=== PATIENT | female | born 1935 | race Caucasian/White ===

== ENCOUNTER → 2018-12-06 | Outpatient (CLI) | payer OTHER ==
[~2018-12-06] MED LIST: ALEN10; ASCO500; ASPI81CH; BRAIN MIGHT-DH1 EACH; CHOL10002; CONEST.625; CRUTCH4 USE; CYAN500; HYDACE5 PO; MAGOXI400; MELA3; METO10; MIRALAX17 GM; NAPR220; OMEP10ER PO; Prednisone20 MG PO; SERT25 PO; SERT50
== END | disposition home or self-care (01) ==
LOC: LAB EV 10:24 → LAB SHORT 10:24
DX: N39.0 Urinary tract infection, site not specified (principal)
CPT/HCPCS: 87077; 87086; 87186

== ENCOUNTER 2018-12-20 03:05 | Emergency (ER) | payer OTHER ==
[~2018-12-20] VITALS: Ht 165.1 cm; Wt 59.9 kg
[~2018-12-20 03:05] MED LIST changes: -Prednisone20 MG PO
[2018-12-20] MEDS ORDERED: Prednisone20 MG PO (03:27)
== END 2018-12-20 03:38 | disposition home or self-care (01) ==
LOC: ER 03:05
DX: L50.9 Urticaria, unspecified (principal); Z88.8 Allergy status to other drugs, medicaments and biological substances; Z88.2 Allergy status to sulfonamides; Z79.899 Other long term (current) drug therapy; Z79.82 Long term (current) use of aspirin
CPT/HCPCS: 99283; Q0163

== ENCOUNTER → 2019-04-04 | Outpatient (CLI) | payer OTHER ==
[~2019-04-04] MED LIST changes: +Prednisone20 MG PO
[2019-04-04 15:04] LABS: Adenovirus Not Detected (NOT DETECT); Bordetella pertussis Not Detected (NOT DETECT); Chlamydophila pneumoniae Not Detected (NOT DETECT); Coronavirus 229E Not Detected (NOT DETECT); Coronavirus HKU1 Not Detected (NOT DETECT); Coronavirus NL63 Not Detected (NOT DETECT); Coronavirus OC43 Not Detected (NOT DETECT); Human Metapneumovirus Detected (NOT DETECT); Human Rhinovirus/Enterovirus Not Detected (NOT DETECT); Influenza A Not Detected (NOT DETECT); Influenza A/2009-H1 Not Detected (NOT DETECT); Influenza A/H1 Not Detected (NOT DETECT); Influenza A/H3 Not Detected (NOT DETECT); Influenza B Not Detected (NOT DETECT); Parainfluenza Virus 1 Not Detected (NOT DETECT); Parainfluenza Virus 2 Not Detected (NOT DETECT); Parainfluenza Virus 3 Not Detected (NOT DETECT); Parainfluenza Virus 4 Not Detected (NOT DETECT); Respiratory Syncytial Virus Not Detected (NOT DETECT)
[2019-04-04 15:05] LABS: Mycoplasma pneumoniae Not Detected (NOT DETECT)
== END | disposition home or self-care (01) ==
LOC: LAB SHORT 13:17 → LAB 13:17
DX: J20.9 Acute bronchitis, unspecified (principal)
CPT/HCPCS: 87486; 87581; 87633; 87798

== ENCOUNTER 2019-06-12 13:57 | Inpatient (IN) | payer OTHER ==
[~2019-06-12] VITALS: Ht 165.1 cm; Wt 58.4 kg
[~2019-06-12 13:57] MED LIST changes: -ASPI81CH; -CONEST.625; -SERT25 PO
[2019-06-12 15:52] LABS: BASOPHILS ABSOLUTE AUTO 0.03 K/mm3 (0.00-0.23); BASOPHILS PERCENT AUTO 1 % (0-2); EOSINOPHILS ABSOLUTE AUTO 0.03 K/mm3 (0.00-0.68); EOSINOPHILS PERCENT AUTO 1 % (0-6); Hematocrit 39.8 % (33.0-51.0); Hemoglobin 12.2 g/dL (11.5-16.0); IMMATURE GRAN ABSOLUTE AUTO 0.02 K/mm3 (0.00-0.10); IMMATURE GRAN PERCENT AUTO 0 % (0-1); LYMPHOCYTES ABSOLUTE AUTO 1.57 K/mm3 (0.84-5.20); LYMPHOCYTES PERCENT AUTO 30 % (21-46); MONOCYTES ABSOLUTE AUTO 0.49 K/mm3 (0.16-1.47); MONOCYTES PERCENT AUTO 9 % (4-13); Mean Corpuscular HGB 27.5 pg (26.0-34.0); Mean Corpuscular HGB Conc 30.7 g/dL (31.5-36.5); Mean Corpuscular Volume 90 fL (80-100); Mean Platelet Volume 9.4 fL (9.1-12.4); NEUTROPHILS ABSOLUTE AUTO 3.12 K/mm3 (1.96-9.15); NEUTROPHILS PERCENT AUTO 59 % (41-73); Platelet Count 151 K/mm3 (150-400); RDW Coefficient Variation 14.5 % (11.7-14.2); RDW Standard Deviation 47.5 fL (35.1-46.3); Red Blood Cell Count 4.44 M/mm3 (3.80-5.20); White Blood Cell Count 5.26 K/mm3 (4.00-11.30)
[2019-06-12 16:47] LABS: Albumin, Blood 3.4 g/dL (3.4-5.0); Bilirubin, Total 0.2 mg/dL (0.1-1.0); Bun/Creatinine Ratio 25.1 (12.0-20.0); Creatinine, Blood 0.96 mg/dL (0.40-1.00); Globulin, Blood 3.3 g/dL (2.2-4.0); Potassium, Blood 3.9 mmol/L (3.5-5.5); Total Protein, Blood 6.7 g/dL (6.4-8.2)
--- NOTE | 2019-06-12 18:29 | NUR ---
ADMISSION: REPORT RECIEVED FROM ED RN, ROBERT. PT TO UNIT AT 1700. UPON ASSESSMENT PT IS IN NO VISABLE DISTRESS, A/O, VSS. PT VERY PAINFUL AFTER TRANSFERING TO BED AND REQUESTED PAIN MED. 0.5 MG DILAUDID GIVEN. PT HX AND ADMISSION CHARTING COMPLETED. PT DAUGHTER AND FRIEND IN ROOM. NO ACUTE SAFETY CONCERNS AT THIS TIME, WILL CTM.
--- NOTE | 2019-06-12 19:49 | NUR ---
DR. GERONIMO MADE AWARE OF PT CONSULT PER MAX ROMERO RN
--- NOTE | 2019-06-13 03:53 | NUR ---
PT RECEIVED DILAUDID FOR C/O R SHOULDER PAIN. REPORTS INEFFECTIVE AT THIS TIME.THIS RN CONSIDERING ASKING FOR ONE TIME DOSE OF TORADOL IV. REVIEWED PTS LABS WITH CREATININE NOTED WNL. GFR NOTED SLIGHTLY BELOW NORMAL AT 59. I SPOKE WITH PT REGARDING THIS AND PT WANTED ME TO SPEAK WITH DAUGHTER. I SPOKE WITH DAUGHTER VIA TELEPHONE AND DAUGHTER OK WITH ASKING FOR 15 MG DOSE.I LEFT MESSAGE FOR HOSPITALIST TO RETURN MY CALL.WHICH HE RETURNED.NOTIFIED OF R SHOULDER PAIN.AND REQUEST FOR TORADOL. ORDERS RECEIVED.
--- NOTE | 2019-06-13 06:40 | NUR ---
SUMMARY PT OUT TO RADIOLOGY VIA CART AT THIS TIME.
--- NOTE | 2019-06-13 07:25 | NUR ---
RETURNED FROM RADIOLOGY WITH C/O NAUSEA. MEDICATED WITH ZOFRAN.
[2019-06-13 16:08] LABS: Source, Urine Catheter
[2019-06-13 16:10] LABS: Bilirubin, Urine Neg (Neg); Blood, Urine 2+ (Neg); Glucose Qualitative, Urine Neg (Neg); Ketones, Urine Neg (Neg); Leukocyte Esterase, Urine 3+ (Neg); Nitrite, Urine Neg (Neg)
[2019-06-13 16:23] LABS: Protein, Urine Neg (Neg); Urobilinogen, Urine NORM (Normal)
[2019-06-13 16:26] LABS: Appearance, Urine Hazy (Clear); Color, Urine Yellow (P-Yellow)
[2019-06-13 16:27] LABS: Bacteria Mod /hpf; Mucus Mod (0-Heavy); Squamous Epithelial Cells Not Seen /hpf (Few); White Blood Cells, Urine 25-50 /hpf (0-5)
--- NOTE | 2019-06-14 03:52 | NUR ---
ASSUMED CARE OF PT. PT SLEEPING IN BED, RESP E/U, NO DISTRESS NOTED. CALL LIGHT IN REACH. WILL CONT TO MONITOR.
--- NOTE | 2019-06-14 04:00 | NUR ---
NO CHANGES SINCE START OF SHIFT. SAFETY MEASURES IN PLACE. HAND OFF GIVEN TO Juliane FITCH RN USING SBAR.
--- NOTE | 2019-06-14 06:39 | NUR ---
PT HAD NO CHANGES SINCE ASSUMING CARE. PT MED FOR PAIN X1 W/.05MG IV DILAUDID. PT DROWSY AND FORGETFUL, HAS DIFFICULTY FINDING WORDS AT TIMES. PT NPO POST MIDNIGHT FOR PLAN FOR OR TODAY. IVF CONT PER ORDERS. CALL LIGHT IN REACH, BED ALARM ON. WILL CONT TO MONITOR UNTIL REP GIVEN TO ONCOMING RN.
--- NOTE | 2019-06-14 11:39 | NUR ---
PT LEFT ROOM TO GO TO [facility]YS[facility]G/OR
--- NOTE | 2019-06-14 11:39 | NUR ---
INTO SDS VIA BED. PT SLEEPY, BUT AWAKENS TO VOICE AND ANSWERS QUESTION APPROPRIATELY. PT REPORTS 4/10 LOW BACK, RIGHT SHOULDER, AND RIGH HIP PAIN. History, Chart, Medications and Allergies reviewed before start of procedure. LUNGS SLIGHTLY DIMINISHED THROUGH OUT. PT BREATHING QUITE SHALLOW. SATS TO 88% ON RA-INCREASE TO 94% WHEN PT REMINDED TO DEEP BREATHE. NPO STATUS CONFIRMED.
--- NOTE | 2019-06-14 15:35 | NUR ---
THIS RN BEEN GIVEN REPORT AND IS ASSUMING CARE OF PT AT THIS TIME. PT CONT TO BE OUT OF ROOM FOR PROCEDURE.
--- NOTE | 2019-06-14 18:16 | NUR ---
PT RECENTLY BACK FROM HAVING PROCEDURE. PT SLEEPY. LS CLEAR DIMINISHED. PT DENIES PAIN, NAUSEA. PT ABLE TO WIGGLE TOES. AQUACELL DRESSING TO R HIP C/D/I. TEDS AND PAS IN PLACE. ALARM ON. FAMILY PRESENT.
--- NOTE | 2019-06-15 02:00 | NUR ---
ASSUMED CARE OF PT. PT LYING IN BED, CALL LIGHT IN REACH, PT DENIES NEEDS AT THIS TIME. WILL CONT TO MONITOR.
--- NOTE | 2019-06-15 02:53 | NUR ---
PT HAND-OFF REPORT TO ALONZO, RN. PT POD#1 R ELOY-HIP REPLACEMENT. DRESSING TO HIP CDI; PAIN MANAGED PER EMAR. PT C/O PAIN IN R SHOULDER, ICE TO SHOULDER AND HIP PT TOLERATED. BED ALARM AND SIDE RAILS X3 FOR SAFETY. 2L O2 VIA NC; CONT. OXIMITRY IN PLACE; PT DENIES SOB. PT SAT UPRIGHT IN BED FOR PILLS/SIPS. SCD'S AND ANANYA'S TO BLE'S.
[2019-06-15 04:25] LABS: BASOPHILS ABSOLUTE AUTO 0.01 K/mm3 (0.00-0.23); BASOPHILS PERCENT AUTO 0 % (0-2); EOSINOPHILS PERCENT AUTO 0 % (0-6); Hematocrit 31.3 % (33.0-51.0); Hemoglobin 9.8 g/dL (11.5-16.0); IMMATURE GRAN ABSOLUTE AUTO 0.03 K/mm3 (0.00-0.10); IMMATURE GRAN PERCENT AUTO 0 % (0-1); LYMPHOCYTES ABSOLUTE AUTO 0.53 K/mm3 (0.84-5.20); LYMPHOCYTES PERCENT AUTO 6 % (21-46); MONOCYTES ABSOLUTE AUTO 0.69 K/mm3 (0.16-1.47); MONOCYTES PERCENT AUTO 8 % (4-13); Mean Corpuscular HGB 27.7 pg (26.0-34.0); Mean Corpuscular HGB Conc 31.3 g/dL (31.5-36.5); Mean Corpuscular Volume 88 fL (80-100); Mean Platelet Volume 10.2 fL (9.1-12.4); NEUTROPHILS ABSOLUTE AUTO 7.92 K/mm3 (1.96-9.15); NEUTROPHILS PERCENT AUTO 86 % (41-73); Platelet Count 111 K/mm3 (150-400); RDW Coefficient Variation 14.4 % (11.7-14.2); RDW Standard Deviation 46.1 fL (35.1-46.3); Red Blood Cell Count 3.54 M/mm3 (3.80-5.20); White Blood Cell Count 9.18 K/mm3 (4.00-11.30)
[2019-06-15 04:44] LABS: Alanine Aminotransfer (ALT/SGP 21 U/L (12-78); Albumin, Blood 2.1 g/dL (3.4-5.0); Albumin/Globulin Ratio 0.7 (0.8-1.8); Alk Phos 56 U/L (50-136); Anion Gap 5 mmol/L (6-16); Aspartate Aminotrans (AST/SGOT 31 U/L (12-37); Bilirubin, Total 0.3 mg/dL (0.1-1.0); Blood Urea Nitrogen 13 mg/dL (8-24); Bun/Creatinine Ratio 16.6 (12.0-20.0); CO2, Blood 27 mmol/L (21-32); Calcium, Blood 7.8 mg/dL (8.5-10.1); Chloride, Blood 108 mmol/L (98-108); Creatinine, Blood 0.79 mg/dL (0.40-1.00); Globulin, Blood 2.9 g/dL (2.2-4.0); Glomerular Filtration Rate >60 (60-); Glucose, Blood 126 mg/dL (70-99); Magnesium, Blood 1.8 mg/dL (1.6-2.4); Potassium, Blood 3.9 mmol/L (3.5-5.5); Sodium, Blood 140 mmol/L (136-145)
--- NOTE | 2019-06-15 05:44 | NUR ---
BP: PT BP HYPO T/O NIGHT, TRENDING DOWN 87/35 THIS AM. HR STABLE 60'S. PT REP MILD DIZZINESS. CALL PLACED TO MD, PT VITALS, LABS AND I/O REV W/MD. NEW ORDER FOR 500CC NS BOLUS REC.
--- NOTE | 2019-06-15 07:24 | NUR ---
POD 1 S/P R ELOY HIP REPAIR. PT BP TRENDED HYPO T/O NIGHT, UPDATED THIS AM, IV BOLUS GIVEN PER ORDERS. OTHER VSS, 2LNC IN PLACE. PT ALERT, TYLENOL AND 0.5MG DILAUDID GIVEN X1, PT DECLINING ADDITIONAL OFFERS FOR PAIN MEDS, REQ FREQUENT REPOSITIONING FOR COMFORT. DRESSING INTACT, CAP REFILL WNL. PT USING CALL LIGHT FOR ASSISTANCE, WILL CONT TO MONITOR UNTIL REP GIVEN TO ONCOMING RN.
--- NOTE | 2019-06-15 08:00 | NUR ---
DR JASSO HERE RECENTLY. DISCUSSED PT'S STATUS INCLUDING BOLUS GIVEN, RECENT VS, LABS. DISCUSSED PT/OT ORDERS. SEE ORDERS. PT FAMILY CALLED WHILE DR IN ROOM. DR JASSO TALKED WITH FAMILY ON PHONE.
--- NOTE | 2019-06-15 09:54 | NUR ---
DR PARKER HERE TO SEE PT, DISCUSSED PT'S STATUS. OT HERE TO SEE PT.
--- NOTE | 2019-06-15 11:49 | NUR ---
PT MED PER PT/FAMILY REQ THEY REPORT WANTING TO TRY A HALF PILL TO START.
--- NOTE | 2019-06-15 16:58 | NUR ---
PT FAMILY REQ PT TO HAVE TORDOL IS IN SOME PAIN STILL AFTER HAVING ONE PAIN PILL, ALSO REQ MIRALAX. DR NOTIFIED SEE ORDERS. FAMILY NOTIFIED OF ORDERS.
--- NOTE | 2019-06-15 19:21 | NUR ---
SHIFT SUMMARY PT BEEN EATING AND DRINKING WITH ENC WITH ASP PRECAUTIONS IN PLACE. PT BEEN ASSISTED WITH ADL'S PRN, REPOSITIONED PRN. PT BEEN UP TO CHAIR, WORKED WITH THERAPY. PT HAS TEDS, PAS, ICE PACK IN PLACE. FAMILY BEEN IN ROOM MOST OF DAY, LEFT THIS EVENING. PT BED ALARM IN PLACE SHE IS CONFUSED AT TIMES. REPORT BEEN GIVEN TO HS RN.
--- NOTE | 2019-06-15 21:06 | NUR ---
ORTHO RO ASSUME CARE (NOC SHIFT) PATIENT ALERT AND ORIENTED TO HERSELF. PATIENT CONFUSED TO TIME/DATE AND LOCATION AT TIMES - REORIENTS EASILY. PATIENT REPORTS MILD PAIN TO MODERATE WITH REPOSITIONING. R HIP PRESSING IN PLACE C/D/I WITH ICE BACK IN PLACE. PATIENT MEDICATED FOR PAIN PER EMAR. NO SWELLING; NUMBNESS OR TINGLING NOTED. PATIENT HAS CHONIC 'CORN/CALUSES' IN BOTH FEET THAT SHE REPORTS BOTHER HER OFTEN AND THAT SHE GRINDS DOWN WITH FILE. PATIENT HAS FAMILY AT BEDSIDE AT PRESENT AND DENIES ANY NEEDS. L/S CLEAR - PATIENT ON ROOM AIR. PATIENT DENIES ANY CHEST PAIN OR PRESSURE. WILL CONTINUE TO MONITOR.
[2019-06-16 05:18] LABS: BASOPHILS ABSOLUTE AUTO 0.01 K/mm3 (0.00-0.23); BASOPHILS PERCENT AUTO 0 % (0-2); EOSINOPHILS ABSOLUTE AUTO 0.12 K/mm3 (0.00-0.68); EOSINOPHILS PERCENT AUTO 2 % (0-6); Hematocrit 29.5 % (33.0-51.0); Hemoglobin 9.2 g/dL (11.5-16.0); IMMATURE GRAN ABSOLUTE AUTO 0.03 K/mm3 (0.00-0.10); IMMATURE GRAN PERCENT AUTO 0 % (0-1); LYMPHOCYTES ABSOLUTE AUTO 1.48 K/mm3 (0.84-5.20); LYMPHOCYTES PERCENT AUTO 20 % (21-46); MONOCYTES ABSOLUTE AUTO 0.61 K/mm3 (0.16-1.47); MONOCYTES PERCENT AUTO 8 % (4-13); Mean Corpuscular HGB Conc 31.2 g/dL (31.5-36.5); Mean Corpuscular Volume 90 fL (80-100); Mean Platelet Volume 9.9 fL (9.1-12.4); NEUTROPHILS ABSOLUTE AUTO 5.16 K/mm3 (1.96-9.15); NEUTROPHILS PERCENT AUTO 70 % (41-73); Platelet Count 126 K/mm3 (150-400); RDW Coefficient Variation 14.6 % (11.7-14.2); RDW Standard Deviation 47.6 fL (35.1-46.3); Red Blood Cell Count 3.28 M/mm3 (3.80-5.20); White Blood Cell Count 7.41 K/mm3 (4.00-11.30)
--- NOTE | 2019-06-16 05:31 | NUR ---
ORTHO SHIFT SUMMARY PATIENT ALERT TO SELF; PATIENT CONFUSED TO LOCATION, SITUATION AND TIME/DATE T/O SHIFT - REORIENTED PRN. PATIENT PULLING AT LINES, CALLEJAS CATH AND CONTINUOUS BIOX. REMOVED CALLEJAS CATH DUE TO PATIENT PULLING AT IT - DOCUMENTED. PATIENT VOID POST CALLEJAS CATH REMOVAL. PATIENT UP TO BATHROOM WITH WALKER AND GAIT BELT THIS SHIFT - TOLERATED WELL. PATIENT PLACED ON 2 LPM NC WHILE SLEEPING DUE TO DESATURATION TO 86% ON ROOM AIR. 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 WILL CONTINUE TO MONITOR, PATIENT RESTFUL AT THIS TME AND DENIES NEED FOR PAIN MEDICATION. RIGHT HIP HAS AQUACELL DRESSING IN PLACE - POST OP DAY 1 TODAY - MILD AMOUNT OF DARK RED DRAINAGE NOTED UNDER AQUACELL. PATIENT HAS BEEN EDUCATED ON HIP PRECAUTIONS AND REMAIN NONCOMPLIANT WITH KEEPING ROLL BETWEEN HER KNEES AND TURNING TO HER SIDE - EDUCATED PRN. WILL CONTINUE TO MONITOR AND REPORT TO DAYSHIFT RN.
[2019-06-16 05:46] LABS: Anion Gap 4 mmol/L (6-16); Blood Urea Nitrogen 17 mg/dL (8-24); Bun/Creatinine Ratio 20.3 (12.0-20.0); CO2, Blood 27 mmol/L (21-32); Calcium, Blood 7.4 mg/dL (8.5-10.1); Chloride, Blood 113 mmol/L (98-108); Creatinine, Blood 0.84 mg/dL (0.40-1.00); Glomerular Filtration Rate >60 (60-); Glucose, Blood 90 mg/dL (70-99); Potassium, Blood 3.4 mmol/L (3.5-5.5); Sodium, Blood 144 mmol/L (136-145)
--- NOTE | 2019-06-16 09:51 | NUR ---
0922 PAIN PATIENT SLIGHTLY TEARFUL, REPORTS PAIN TO RIGHT HIP 7-8. CHECKED ON PATIENTS PAIN MED DOSE AND WHEN RETURNED TO ROOM PATIENT SLEEPING WITH TELEPHONE IN HAND- NOT MEDICATED AT THIS TIME. SPOKE WITH PATIENTS DAUGHTER NIMA REGARDING HOW PATIENT DID DURING THE NIGHT
--- NOTE | 2019-06-16 10:32 | NUR ---
7129 NOTIFIED BY OCCUPATIONAL THERAPIST, REILLY, THAT PATIENTS HR INCREASED TO 148 WITH ACTIVITY. HR CURRENTLY 114. SPOKE WITH DR OLVERA REGARDING HR AND ORDERS RECEIVED. PHONE CALL MADE TO PATIENTS DAUGHTER NIMA TO UPDATE HER ON PATIENT STATUS.
--- NOTE | 2019-06-16 14:47 | NUR ---
patients daughter, marzena here and would like her mother to transfer to snf today. marzena request to speak with Dr Segovia. contacted Dr Segovia who willspeak with Marzena
--- NOTE | 2019-06-16 15:07 | NUR ---
spoke with dr Juliette garcia. patients heartrate after working with PT. plan paolo be to re evaluate patient tomorrow regarding snf discharge. Spoke with Jennifer Markham RN and will transfer patient to [facility] if patient deemed medically stable
--- NOTE | 2019-06-16 17:26 | NUR ---
SUMMARY PATIENT SLEEPS AFTER MEDICATED FOR PAIN, AWAKENS TO VERBAL STIMULI. [facility] SOFT DIET ORDERED PER DAUGHTERS REQUEST SHE TELLS ME PATIENT WAS COUGHING WITH REGULAR DIET AT LUNCH. PATIENT CALM AND COOPERATIVE THROUGHOUT SHIFT. DRESSING CLEAN, DRY AND INTACT TO RIGHT HIP.
--- NOTE | 2019-06-17 04:51 | NUR ---
PT WITH TACHYCARDIA NOTED DURING DAY WHICH REPORTED TO BE CAUSE OF PT NOT TRANSFERRING TO REHAB DURING DAY.PER DAY RN DAUGHTER STATING PT WITH HX TACHYCARDIA AND WANTING TRANSFER NOT TO BE FURTHER DELAYED.SEE VS FLOW FOR MY DOCUMENTAION OF HEART RATE. PT DENIES CP OR SOB.PT WITH C/O GROIN PAIN BILAT TONIGHT AND R HIP PAIN WITH AMBULATION FOR BRP WHEN PRIOR IN BED DENIED PAIN. I MEDICATED PT WITH PO PAIN MED.BUT,DUE TO BILAT GROIN PAIN AND MILD FEELING OF URGE TO VOID SHORTLY AFTER BRP,I DID BLADDER SCAN ON PT TO VERIFY SHE HAD BEEN EMPTYING BLADDER. BLADDER SCANNED FOR 430 ML.PT REPORTED SHE HAD NOT REALIZED SHE WAS PULLING ON HER CATH, AND ACCIDENTALLY PULLED CATH OUT NIGHT BEFORE.I IN/OUT CATHED PT FOR RETURN OF 600 ML.WITH CATH,SWELLING WAS NOTED. FULLY EMPTIED BLADDER, WITH PT REPORTING PAIN L GROIN IMMEDIATELY RESOLVED AND R HIP/GROIN SIGNIFICANTLY IMPROVED WELL.URINE CLR YELLOW IN APPEARANCE. SPECIPAN PLACED IN BATHROOM FOR FURTHER MEASUREMENTOF I/O WITH ASSISTED BRP. SQL MANAGER OBTAINED 1 X ORDER FOR TORADOL 15 MG IV WHICH WAS GIVEN AND PT RESTING AFTER. SEE VS FLOW.PT REPORTS R SHOULDER PAIN WHICH WAS BASELINE. WARM BLANKET GIVEN TO R SHOULDER AND ICE R HIP.
[2019-06-17 04:53] LABS: Hematocrit 28.7 % (33.0-51.0); Mean Corpuscular HGB 28.4 pg (26.0-34.0); Mean Corpuscular HGB Conc 31.4 g/dL (31.5-36.5); Mean Corpuscular Volume 91 fL (80-100); Mean Platelet Volume 9.9 fL (9.1-12.4); Platelet Count 139 K/mm3 (150-400); RDW Coefficient Variation 14.9 % (11.7-14.2); RDW Standard Deviation 49.5 fL (35.1-46.3); Red Blood Cell Count 3.17 M/mm3 (3.80-5.20); White Blood Cell Count 5.75 K/mm3 (4.00-11.30)
[2019-06-17 05:09] LABS: Anion Gap 4 mmol/L (6-16); Blood Urea Nitrogen 12 mg/dL (8-24); Bun/Creatinine Ratio 15.4 (12.0-20.0); CO2, Blood 28 mmol/L (21-32); Chloride, Blood 111 mmol/L (98-108); Creatinine, Blood 0.78 mg/dL (0.40-1.00); Glomerular Filtration Rate >60 (60-); Glucose, Blood 99 mg/dL (70-99); Sodium, Blood 143 mmol/L (136-145)
--- NOTE | 2019-06-17 09:50 | NUR ---
spoke with dr Segovia and patient is ready to cc to snf today. spoke with [facility] admissions coordinatoe and verified bed is available today. will fax discharge orders when received and arrange transport
--- NOTE | 2019-06-17 14:16 | NUR ---
discharged via [facility] transport to [facility]. patients daughter, shante, at bedside at time of transfer
== END 2019-06-17 14:18 | DRG 470 ==
LOC: ER 13:57 → SURS 16:11
PROVIDERS: Emergency Medicine; Internal Medicine; Orthopaedic Surgery; ADMIT Internal Medicine
PROC: 0SRR0J9 Replacement of Right Hip Joint, Femoral Surface with Synthetic Substitute, Cemented, Open Approach (ICD-10-PCS; principal; 2019-06-14 12:30)
DX: S72.001A Fracture of unspecified part of neck of right femur, initial encounter for closed fracture (principal); N39.0 Urinary tract infection, site not specified; W01.0XXA Fall on same level from slipping, tripping and stumbling without subsequent striking against object, initial encounter; D64.9 Anemia, unspecified; R00.0 Tachycardia, unspecified; Z88.5 Allergy status to narcotic agent; Z88.0 Allergy status to penicillin; Z88.2 Allergy status to sulfonamides; Z88.8 Allergy status to other drugs, medicaments and biological substances
CPT/HCPCS: 36415; 51702; 71045; 72170; 72192; 73030; 73502; 73552; 80048; 80053; 81001; 83735; 85025; 85027; 88305; 88311; 93005; 93010; 94762; 96374; 96375; 97110; 97116; 97162; 97166; 97530; 97535; 99284-25; A9270; C1713; C1776; J0171; J0690; J0696; J0735; J1100; J1170; J1650; J1885; J2270; J2370; J2405; J2704; J2795; J3010; J7030; J7040; J7120

== ENCOUNTER 2019-06-20 15:08 | Emergency (ER) | payer OTHER ==
[~2019-06-20] VITALS: Ht 172.7 cm; Wt 90.7 kg
[2019-06-20 15:56] LABS: BASOPHILS ABSOLUTE AUTO 0.04 K/mm3 (0.00-0.23); BASOPHILS PERCENT AUTO 0 % (0-2); EOSINOPHILS ABSOLUTE AUTO 0.02 K/mm3 (0.00-0.68); EOSINOPHILS PERCENT AUTO 0 % (0-6); Hematocrit 33.3 % (33.0-51.0); Hemoglobin 10.4 g/dL (11.5-16.0); IMMATURE GRAN ABSOLUTE AUTO 0.27 K/mm3 (0.00-0.10); IMMATURE GRAN PERCENT AUTO 2 % (0-1); LYMPHOCYTES ABSOLUTE AUTO 1.29 K/mm3 (0.84-5.20); LYMPHOCYTES PERCENT AUTO 11 % (21-46); MONOCYTES ABSOLUTE AUTO 0.88 K/mm3 (0.16-1.47); MONOCYTES PERCENT AUTO 8 % (4-13); Mean Corpuscular HGB 27.7 pg (26.0-34.0); Mean Corpuscular HGB Conc 31.2 g/dL (31.5-36.5); Mean Corpuscular Volume 89 fL (80-100); NEUTROPHILS ABSOLUTE AUTO 9.16 K/mm3 (1.96-9.15); NEUTROPHILS PERCENT AUTO 79 % (41-73); Platelet Count 285 K/mm3 (150-400); RDW Coefficient Variation 14.6 % (11.7-14.2); RDW Standard Deviation 46.4 fL (35.1-46.3); Red Blood Cell Count 3.75 M/mm3 (3.80-5.20); White Blood Cell Count 11.66 K/mm3 (4.00-11.30)
[2019-06-20 16:19] LABS: Alanine Aminotransfer (ALT/SGP 68 U/L (12-78); Albumin, Blood 2.9 g/dL (3.4-5.0); Albumin/Globulin Ratio 0.8 (0.8-1.8); Alk Phos 84 U/L (50-136); Anion Gap 8 mmol/L (6-16); Aspartate Aminotrans (AST/SGOT 93 U/L (12-37); Bilirubin, Total 0.8 mg/dL (0.1-1.0); Blood Urea Nitrogen 15 mg/dL (8-24); CO2, Blood 25 mmol/L (21-32); Calcium, Blood 8.8 mg/dL (8.5-10.1); Chloride, Blood 105 mmol/L (98-108); Creatinine, Blood 0.83 mg/dL (0.40-1.00); Globulin, Blood 3.7 g/dL (2.2-4.0); Glomerular Filtration Rate >60 (60-); Glucose, Blood 243 mg/dL (70-99); Potassium, Blood 3.5 mmol/L (3.5-5.5); Sodium, Blood 138 mmol/L (136-145); Total Protein, Blood 6.6 g/dL (6.4-8.2)
[2019-06-20 17:23] LABS: Source, Urine Clean Catch
[2019-06-20 17:30] LABS: Bilirubin, Urine Neg (Neg); Blood, Urine Neg (Neg); Glucose Qualitative, Urine 3+ (Neg); Ketones, Urine 3+ (Neg); Leukocyte Esterase, Urine Neg (Neg); Nitrite, Urine Neg (Neg); Protein, Urine Neg (Neg); Specific Gravity, Urine 1.015 (1.003-1.022); Urobilinogen, Urine NORM (Normal); pH, Urine 6.5 (5.0-8.0)
[2019-06-20 17:53] LABS: Appearance, Urine Clear (Clear); Color, Urine Pale Yellow (P-Yellow)
[2019-06-21] MEDS ORDERED: ASPI81CH (11:31)
[2019-06-21] MEDS ORDERED: SERT25 PO (11:31)
[2019-06-21] MEDS ORDERED: CONEST.625 (11:31)
[2019-06-21] MEDS ORDERED: Percocet 5-3251 EACH PO (11:33)
[2019-06-21] MEDS ORDERED: MIRALAX17 GM PO (11:34)
== END 2019-06-20 22:49 | disposition home or self-care (01) ==
LOC: ER 15:08
PROVIDERS: Emergency Medicine
DX: K59.00 Constipation, unspecified (principal); Z88.0 Allergy status to penicillin; Z88.8 Allergy status to other drugs, medicaments and biological substances; Z88.2 Allergy status to sulfonamides; Z88.5 Allergy status to narcotic agent
CPT/HCPCS: 36415; 74018; 74176; 80053; 81003; 83690; 85025; 93005; 93010; 96361; 96374; 96375; 96376; 99285-25; J1170; J2405; J3010; J7030

== ENCOUNTER 2019-06-21 11:13 | Emergency (ER) | payer OTHER ==
[~2019-06-21] VITALS: Ht 165.1 cm; Wt 79.4 kg
[2019-06-21] MEDS ORDERED: SERT25 PO (11:31)
[2019-06-21] MEDS ORDERED: ASPI81CH (11:31)
[2019-06-21] MEDS ORDERED: CONEST.625 (11:31)
[2019-06-21] MEDS ORDERED: Percocet 5-3251 EACH PO (11:33)
[2019-06-21] MEDS ORDERED: MIRALAX17 GM PO (11:34)
== END 2019-06-21 17:22 | disposition home or self-care (01) ==
LOC: ER 11:13
DX: K56.7 Ileus, unspecified (principal); R11.0 Nausea; K44.9 Diaphragmatic hernia without obstruction or gangrene; Z88.0 Allergy status to penicillin; Z88.8 Allergy status to other drugs, medicaments and biological substances; Z88.2 Allergy status to sulfonamides; Z88.5 Allergy status to narcotic agent; Z79.899 Other long term (current) drug therapy
CPT/HCPCS: 96361; 96374; 96375; 96376; 99283-25; J1170; J2405; J7030

== ENCOUNTER → 2019-12-04 | Outpatient (CLI) | payer OTHER ==
[~2019-12-04] MED LIST changes: +ASPI81CH; +CONEST.625; +MIRALAX17 GM PO; +Percocet 5-3251 EACH PO; +SERT25 PO
[2019-12-04 19:01] LABS: Source, Urine Clean Catch
[2019-12-04 19:41] LABS: Bilirubin, Urine Neg (Neg); Blood, Urine Neg (Neg); Glucose Qualitative, Urine Neg (Neg); Ketones, Urine Neg (Neg); Leukocyte Esterase, Urine 1+ (Neg); Nitrite, Urine Neg (Neg); Protein, Urine Neg (Neg); Urobilinogen, Urine NORM (Normal)
[2019-12-04 19:45] LABS: Appearance, Urine Clear (Clear); Color, Urine Yellow (P-Yellow)
[2019-12-04 19:52] LABS: Bacteria Few /hpf; Red Blood Cells, Urine Not Seen /hpf (0-2); Squamous Epithelial Cells Rare /hpf (Few); White Blood Cells, Urine 0-2 /hpf (0-5)
== END | disposition home or self-care (01) ==
LOC: LAB SHORT 18:59 → LAB 18:59
DX: N39.0 Urinary tract infection, site not specified (principal)
CPT/HCPCS: 81001; 87077; 87086; 87186

== ENCOUNTER → 2020-09-05 | Outpatient (CLI) | payer OTHER ==
[2020-09-05 14:40] LABS: BASOPHILS ABSOLUTE AUTO 0.04 K/mm3 (0.00-0.23); BASOPHILS PERCENT AUTO 1 % (0-2); EOSINOPHILS ABSOLUTE AUTO 0.03 K/mm3 (0.00-0.68); EOSINOPHILS PERCENT AUTO 1 % (0-6); Hematocrit 44.8 % (33.0-51.0); Hemoglobin 14.2 g/dL (11.5-16.0); IMMATURE GRAN ABSOLUTE AUTO 0.01 K/mm3 (0.00-0.10); IMMATURE GRAN PERCENT AUTO 0 % (0-1); LYMPHOCYTES ABSOLUTE AUTO 1.38 K/mm3 (0.84-5.20); LYMPHOCYTES PERCENT AUTO 26 % (21-46); MONOCYTES ABSOLUTE AUTO 0.48 K/mm3 (0.16-1.47); MONOCYTES PERCENT AUTO 9 % (4-13); Mean Corpuscular HGB 28.1 pg (26.0-34.0); Mean Corpuscular HGB Conc 31.7 g/dL (31.5-36.5); Mean Corpuscular Volume 89 fL (80-100); Mean Platelet Volume 9.3 fL (9.1-12.4); NEUTROPHILS ABSOLUTE AUTO 3.46 K/mm3 (1.96-9.15); NEUTROPHILS PERCENT AUTO 64 % (41-73); Platelet Count 204 K/mm3 (150-400); RDW Coefficient Variation 14.1 % (11.7-14.2); RDW Standard Deviation 45.2 fL (35.1-46.3); Red Blood Cell Count 5.05 M/mm3 (3.80-5.20)
[2020-09-05 14:51] LABS: Anion Gap 6 mmol/L (6-16); Blood Urea Nitrogen 14 mg/dL (8-24); Bun/Creatinine Ratio 12.3 (12.0-20.0); CO2, Blood 30 mmol/L (21-32); Calcium, Blood 10.3 mg/dL (8.5-10.1); Chloride, Blood 103 mmol/L (98-108); Creatinine, Blood 1.14 mg/dL (0.40-1.00); Glomerular Filtration Rate 45 (60-); Glucose, Blood 83 mg/dL (70-99); Potassium, Blood 3.9 mmol/L (3.5-5.5); Sodium, Blood 139 mmol/L (136-145); Troponin I <0.017 ng/mL (0.000-0.040)
== END ==
LOC: LAB SHORT 14:34 → LAB EV 14:34
PROVIDERS: Family Medicine
DX: R07.89 Other chest pain (principal)
CPT/HCPCS: 80048; 84484; 85025; U0003

== ENCOUNTER 2021-01-19 19:52 | Emergency (ER) | payer OTHER ==
[~2021-01-19] VITALS: Ht 160 cm; Wt 68.0 kg
[2021-01-19 20:22] LABS: BASOPHILS ABSOLUTE AUTO 0.02 K/mm3 (0.00-0.23); BASOPHILS PERCENT AUTO 0 % (0-2); EOSINOPHILS ABSOLUTE AUTO 0.02 K/mm3 (0.00-0.68); EOSINOPHILS PERCENT AUTO 0 % (0-6); Hematocrit 44.2 % (33.0-51.0); Hemoglobin 14.2 g/dL (11.5-16.0); IMMATURE GRAN ABSOLUTE AUTO 0.02 K/mm3 (0.00-0.10); IMMATURE GRAN PERCENT AUTO 0 % (0-1); LYMPHOCYTES ABSOLUTE AUTO 1.26 K/mm3 (0.84-5.20); LYMPHOCYTES PERCENT AUTO 16 % (21-46); MONOCYTES ABSOLUTE AUTO 0.56 K/mm3 (0.16-1.47); MONOCYTES PERCENT AUTO 7 % (4-13); Mean Corpuscular HGB 27.8 pg (26.0-34.0); Mean Corpuscular HGB Conc 32.1 g/dL (31.5-36.5); Mean Corpuscular Volume 87 fL (80-100); Mean Platelet Volume 8.8 fL (9.1-12.4); NEUTROPHILS ABSOLUTE AUTO 6.19 K/mm3 (1.96-9.15); NEUTROPHILS PERCENT AUTO 77 % (41-73); Platelet Count 201 K/mm3 (150-400); RDW Coefficient Variation 14.1 % (11.7-14.2); RDW Standard Deviation 44.9 fL (35.1-46.3); Red Blood Cell Count 5.11 M/mm3 (3.80-5.20); White Blood Cell Count 8.07 K/mm3 (4.00-11.30)
[2021-01-19 20:42] LABS: Alanine Aminotransfer (ALT/SGP 21 U/L (12-78); Albumin, Blood 3.8 g/dL (3.4-5.0); Alk Phos 82 U/L (50-136); Anion Gap 7 mmol/L (6-16); Aspartate Aminotrans (AST/SGOT 20 U/L (12-37); Bilirubin, Total 0.6 mg/dL (0.1-1.0); Blood Urea Nitrogen 14 mg/dL (8-24); Bun/Creatinine Ratio 16.1 (12.0-20.0); CO2, Blood 28 mmol/L (21-32); Calcium, Blood 9.4 mg/dL (8.5-10.1); Chloride, Blood 106 mmol/L (98-108); Creatinine, Blood 0.87 mg/dL (0.40-1.00); Globulin, Blood 3.9 g/dL (2.2-4.0); Glomerular Filtration Rate >60 (60-); Glucose, Blood 118 mg/dL (70-99); Potassium, Blood 3.6 mmol/L (3.5-5.5); Sodium, Blood 141 mmol/L (136-145); Total Protein, Blood 7.7 g/dL (6.4-8.2)
[2021-01-19 22:28] LABS: Troponin I <0.015 ng/mL (0.000-0.040)
[2021-01-20 00:11] LABS: Source, Urine Clean Catch
[2021-01-20 00:20] LABS: Bilirubin, Urine Neg (Neg); Blood, Urine 2+ (Neg); Glucose Qualitative, Urine Neg (Neg); Ketones, Urine 2+ (Neg); Leukocyte Esterase, Urine 3+ (Neg); Nitrite, Urine Neg (Neg); Protein, Urine 1+ (Neg); Urobilinogen, Urine NORM (Normal)
[2021-01-20 00:39] LABS: Appearance, Urine Cloudy (Clear); Color, Urine Yellow (P-Yellow)
[2021-01-20 00:40] LABS: Red Blood Cells, Urine 0-2 /hpf (0-2); White Blood Cells, Urine 50-100 /hpf (0-5)
[2021-01-20 00:41] LABS: Amorphous Heavy (0-Heavy); Bacteria Mod /hpf; Squamous Epithelial Cells Rare /hpf (Few)
[2021-01-20 01:30] LABS: Influenza A, PCR NEGATIVE (NEGATIVE); Influenza B, PCR NEGATIVE (NEGATIVE); Resp Syncytial Virus, PCR NEGATIVE (NEGATIVE); SARS-Cov-2 (COVID-19) PCR, MMC NEGATIVE (NEGATIVE)
== END 2021-01-20 03:00 | disposition short-term general hospital (02) ==
LOC: ER 19:52
PROVIDERS: Emergency Medicine
DX: K31.89 Other diseases of stomach and duodenum (principal); Z20.822 Contact with and (suspected) exposure to COVID-19
CPT/HCPCS: 0241U; 36415; 74177; 80053; 81001; 83605; 83690; 84484; 85025; 86850; 86900; 86901; 87040; 87077; 87086; 87186; 93005; 93010; 96365; 96374; 96375; 96376; 99285-25; J0696; J2405; J3010; J7030; Q9967

== ENCOUNTER 2021-01-26 20:00 | Emergency (ER) | payer OTHER ==
[~2021-01-26] VITALS: Ht 165.1 cm; Wt 59.9 kg
[2021-01-26 21:11] LABS: Source, Urine Clean Catch
[2021-01-26 21:15] LABS: Appearance, Urine Cloudy (Clear); Bilirubin, Urine Neg (Neg); Blood, Urine 2+ (Neg); Color, Urine Yellow (P-Yellow); Glucose Qualitative, Urine Neg (Neg); Ketones, Urine Neg (Neg); Leukocyte Esterase, Urine 2+ (Neg); Nitrite, Urine Neg (Neg); Protein, Urine Neg (Neg); Specific Gravity, Urine 1.015 (1.003-1.022); Urobilinogen, Urine NORM (Normal)
[2021-01-26 21:17] LABS: BASOPHILS ABSOLUTE AUTO 0.04 K/mm3 (0.00-0.23); BASOPHILS PERCENT AUTO 1 % (0-2); EOSINOPHILS ABSOLUTE AUTO 0.04 K/mm3 (0.00-0.68); EOSINOPHILS PERCENT AUTO 1 % (0-6); Hematocrit 41.9 % (33.0-51.0); Hemoglobin 13.3 g/dL (11.5-16.0); IMMATURE GRAN ABSOLUTE AUTO 0.01 K/mm3 (0.00-0.10); IMMATURE GRAN PERCENT AUTO 0 % (0-1); LYMPHOCYTES PERCENT AUTO 37 % (21-46); MONOCYTES ABSOLUTE AUTO 0.46 K/mm3 (0.16-1.47); MONOCYTES PERCENT AUTO 10 % (4-13); Mean Corpuscular HGB 27.9 pg (26.0-34.0); Mean Corpuscular HGB Conc 31.7 g/dL (31.5-36.5); Mean Corpuscular Volume 88 fL (80-100); Mean Platelet Volume 9.4 fL (9.1-12.4); NEUTROPHILS ABSOLUTE AUTO 2.48 K/mm3 (1.96-9.15); NEUTROPHILS PERCENT AUTO 51 % (41-73); Platelet Count 209 K/mm3 (150-400); RDW Coefficient Variation 14.1 % (11.7-14.2); Red Blood Cell Count 4.77 M/mm3 (3.80-5.20); White Blood Cell Count 4.83 K/mm3 (4.00-11.30)
[2021-01-26 21:28] LABS: Squamous Epithelial Cells Not Seen /hpf (Few)
[2021-01-26 21:29] LABS: Amorphous Heavy (0-Heavy); Bacteria Few /hpf
[2021-01-26 21:35] LABS: Albumin, Blood 3.3 g/dL (3.4-5.0); Albumin/Globulin Ratio 0.9 (0.8-1.8); Bilirubin, Total 0.3 mg/dL (0.1-1.0); Bun/Creatinine Ratio 29.5 (12.0-20.0); Calcium, Blood 9.1 mg/dL (8.5-10.1); Creatinine, Blood 0.98 mg/dL (0.40-1.00); Globulin, Blood 3.6 g/dL (2.2-4.0); Potassium, Blood 4.1 mmol/L (3.5-5.5); Total Protein, Blood 6.9 g/dL (6.4-8.2)
[2021-01-26] MEDS ORDERED: CEPH500 PO (22:14)
== END 2021-01-26 22:43 | disposition home or self-care (01) ==
LOC: ER 20:00
PROVIDERS: Physician Assistant
DX: N30.90 Cystitis, unspecified without hematuria (principal); K21.9 Gastro-esophageal reflux disease without esophagitis; Z88.0 Allergy status to penicillin; Z88.2 Allergy status to sulfonamides; Z88.5 Allergy status to narcotic agent
CPT/HCPCS: 36415; 80053; 81001; 83690; 85025; 87077; 87086; 87186; 96360; 99284-25; A9270; J7030

== ENCOUNTER → 2021-04-18 | Outpatient (CLI) | payer OTHER ==
[~2021-04-18] MED LIST changes: +CEPH500 PO
[2021-04-18 12:36] LABS: BASOPHILS ABSOLUTE AUTO 0.02 K/mm3 (0.00-0.23); BASOPHILS PERCENT AUTO 1 % (0-2); EOSINOPHILS ABSOLUTE AUTO 0.05 K/mm3 (0.00-0.68); EOSINOPHILS PERCENT AUTO 1 % (0-6); Hematocrit 43.6 % (33.0-51.0); Hemoglobin 13.6 g/dL (11.5-16.0); IMMATURE GRAN ABSOLUTE AUTO 0.02 K/mm3 (0.00-0.10); IMMATURE GRAN PERCENT AUTO 1 % (0-1); LYMPHOCYTES ABSOLUTE AUTO 1.07 K/mm3 (0.84-5.20); LYMPHOCYTES PERCENT AUTO 26 % (21-46); MONOCYTES ABSOLUTE AUTO 0.36 K/mm3 (0.16-1.47); MONOCYTES PERCENT AUTO 9 % (4-13); Mean Corpuscular HGB 27.9 pg (26.0-34.0); Mean Corpuscular HGB Conc 31.2 g/dL (31.5-36.5); Mean Corpuscular Volume 89 fL (80-100); Mean Platelet Volume 8.9 fL (9.1-12.4); NEUTROPHILS ABSOLUTE AUTO 2.59 K/mm3 (1.96-9.15); NEUTROPHILS PERCENT AUTO 63 % (41-73); Platelet Count 186 K/mm3 (150-400); RDW Coefficient Variation 14.5 % (11.7-14.2); RDW Standard Deviation 46.9 fL (35.1-46.3); Red Blood Cell Count 4.88 M/mm3 (3.80-5.20); White Blood Cell Count 4.11 K/mm3 (4.00-11.30)
[2021-04-18 12:44] LABS: Albumin, Blood 3.7 g/dL (3.4-5.0)
[2021-04-18 13:21] LABS: Bilirubin, Total 0.3 mg/dL (0.1-1.0); Bun/Creatinine Ratio 14.4 (12.0-20.0); Creatinine, Blood 0.97 mg/dL (0.40-1.00); Globulin, Blood 3.6 g/dL (2.2-4.0); Potassium, Blood 4.1 mmol/L (3.5-5.5); Total Protein, Blood 7.3 g/dL (6.4-8.2)
== END | disposition home or self-care (01) ==
LOC: LAB EV 12:31 → LAB SHORT 12:31
PROVIDERS: General Practice
DX: R11.0 Nausea (principal); R82.90 Unspecified abnormal findings in urine
CPT/HCPCS: 80053; 85025; 87086

== ENCOUNTER → 2021-07-17 | Outpatient (CLI) | payer OTHER ==
[2021-07-17 13:02] LABS: BASOPHILS ABSOLUTE AUTO 0.03 K/mm3 (0.00-0.23); BASOPHILS PERCENT AUTO 0 % (0-2); EOSINOPHILS ABSOLUTE AUTO 0.04 K/mm3 (0.00-0.68); EOSINOPHILS PERCENT AUTO 1 % (0-6); Hematocrit 37.6 % (33.0-51.0); Hemoglobin 11.9 g/dL (11.5-16.0); IMMATURE GRAN ABSOLUTE AUTO 0.08 K/mm3 (0.00-0.10); IMMATURE GRAN PERCENT AUTO 1 % (0-1); LYMPHOCYTES ABSOLUTE AUTO 1.35 K/mm3 (0.84-5.20); LYMPHOCYTES PERCENT AUTO 18 % (21-46); MONOCYTES ABSOLUTE AUTO 0.62 K/mm3 (0.16-1.47); MONOCYTES PERCENT AUTO 8 % (4-13); Mean Corpuscular HGB 27.9 pg (26.0-34.0); Mean Corpuscular HGB Conc 31.6 g/dL (31.5-36.5); Mean Corpuscular Volume 88 fL (80-100); NEUTROPHILS ABSOLUTE AUTO 5.54 K/mm3 (1.96-9.15); NEUTROPHILS PERCENT AUTO 72 % (41-73); Platelet Count 164 K/mm3 (150-400); RDW Coefficient Variation 14.7 % (11.7-14.2); RDW Standard Deviation 47.4 fL (35.1-46.3); Red Blood Cell Count 4.26 M/mm3 (3.80-5.20); White Blood Cell Count 7.66 K/mm3 (4.00-11.30)
[2021-07-17 13:08] LABS: Bun/Creatinine Ratio 19.4 (12.0-20.0); Calcium, Blood 8.4 mg/dL (8.5-10.1); Creatinine, Blood 1.24 mg/dL (0.40-1.00); Potassium, Blood 3.6 mmol/L (3.5-5.5)
== END | disposition home or self-care (01) ==
LOC: LAB SHORT 12:56 → LAB 12:56
PROVIDERS: Physician Assistant Surgical
DX: R19.7 Diarrhea, unspecified (principal)
CPT/HCPCS: 80048; 85025

== ENCOUNTER → 2021-07-18 | Outpatient (CLI) | payer OTHER ==
[2021-07-18 16:21] LABS: Adenovirus F 40/41 Not Detected (NOT DETECT); Astrovirus Not Detected (NOT DETECT); Campylobacter Sp Not Detected (NOT DETECT); Cryptosporidium Not Detected (NOT DETECT); Cyclospora Cayetanensis Not Detected (NOT DETECT); E. Coli O157 Not Detected (NOT DETECT); Entamoeba Histolytica Not Detected (NOT DETECT); Enteroaggregative E. coli-EAEC Not Detected (NOT DETECT); Enteropathogenic E. coli-EPEC Not Detected (NOT DETECT); Enterotoxigenic E. coli-ETEC Not Detected (NOT DETECT); Giardia Lamblia Not Detected (NOT DETECT); Norovirus GI/GII Not Detected (NOT DETECT); Plesiomonas Shigelloides Not Detected (NOT DETECT); Rotavirus A Not Detected (NOT DETECT); Salmonella Sp Not Detected (NOT DETECT); Sapovirus Not Detected (NOT DETECT); Shiga Toxin-prod E. coli-STEC Not Detected (NOT DETECT); Shigella/Enteroin E. coli-EIEC Not Detected (NOT DETECT); Vibrio Cholerae Not Detected (NOT DETECT); Vibrio Sp Not Detected (NOT DETECT); Yersinia Enterocolitica Not Detected (NOT DETECT)
== END | disposition home or self-care (01) ==
LOC: LAB 13:49 → LAB SHORT 13:49
PROVIDERS: Physician Assistant Surgical
DX: R19.7 Diarrhea, unspecified (principal)
CPT/HCPCS: 0097U

== ENCOUNTER 2022-01-08 08:41 | Emergency (ER) | payer OTHER ==
[~2022-01-08] VITALS: Ht 165.1 cm; Wt 57.6 kg
[2022-01-08] MEDS ORDERED: GABA100 PO (09:46)
[2022-01-08 10:07] LABS: BASOPHILS ABSOLUTE AUTO 0.03 K/mm3 (0.00-0.23); BASOPHILS PERCENT AUTO 1 % (0-2); EOSINOPHILS ABSOLUTE AUTO 0.03 K/mm3 (0.00-0.68); EOSINOPHILS PERCENT AUTO 1 % (0-6); Hematocrit 39.9 % (33.0-51.0); Hemoglobin 12.1 g/dL (11.5-16.0); IMMATURE GRAN ABSOLUTE AUTO 0.01 K/mm3 (0.00-0.10); IMMATURE GRAN PERCENT AUTO 0 % (0-1); LYMPHOCYTES ABSOLUTE AUTO 1.24 K/mm3 (0.84-5.20); LYMPHOCYTES PERCENT AUTO 30 % (21-46); MONOCYTES ABSOLUTE AUTO 0.47 K/mm3 (0.16-1.47); MONOCYTES PERCENT AUTO 11 % (4-13); Mean Corpuscular HGB 27.5 pg (26.0-34.0); Mean Corpuscular HGB Conc 30.3 g/dL (31.5-36.5); Mean Corpuscular Volume 91 fL (80-100); Mean Platelet Volume 9.3 fL (9.1-12.4); NEUTROPHILS ABSOLUTE AUTO 2.42 K/mm3 (1.96-9.15); NEUTROPHILS PERCENT AUTO 58 % (41-73); Platelet Count 163 K/mm3 (150-400); RDW Coefficient Variation 13.7 % (11.7-14.2); RDW Standard Deviation 45.7 fL (35.1-46.3)
[2022-01-08 10:14] LABS: Albumin, Blood 3.6 g/dL (3.4-5.0); Albumin/Globulin Ratio 1.1 (0.8-1.8); Bilirubin, Total 0.3 mg/dL (0.1-1.0); Bun/Creatinine Ratio 15.6 (12.0-20.0); Calcium, Blood 9.1 mg/dL (8.5-10.1); Creatinine, Blood 1.09 mg/dL (0.40-1.00); Globulin, Blood 3.2 g/dL (2.2-4.0); Potassium, Blood 4.5 mmol/L (3.5-5.5); Total Protein, Blood 6.8 g/dL (6.4-8.2)
[2022-01-08 10:54] LABS: Influenza A, PCR NEGATIVE (NEGATIVE); Influenza B, PCR NEGATIVE (NEGATIVE); Resp Syncytial Virus, PCR NEGATIVE (NEGATIVE); SARS-Cov-2 (COVID-19) PCR, MMC NEGATIVE (NEGATIVE)
[2022-01-08 11:24] LABS: Source, Urine Voided
[2022-01-08 11:27] LABS: Bilirubin, Urine Neg (Neg); Blood, Urine Neg (Neg); Glucose Qualitative, Urine Neg (Neg); Ketones, Urine Neg (Neg); Leukocyte Esterase, Urine 2+ (Neg); Nitrite, Urine Neg (Neg); Protein, Urine Neg (Neg); Specific Gravity, Urine 1.015 (1.003-1.022); Urobilinogen, Urine NORM (Normal)
[2022-01-08 11:48] LABS: Appearance, Urine Hazy (Clear); Color, Urine Pale Yellow (P-Yellow)
[2022-01-08 11:49] LABS: Bacteria Mod /hpf; Red Blood Cells, Urine 0-2 /hpf (0-2); Squamous Epithelial Cells Rare /hpf (Few)
[2022-01-08 11:50] LABS: Calcium Oxalate Crystals Few /hpf; Mucus Heavy (0-Heavy)
[2022-01-08] MEDS ORDERED: CEPH500 PO (12:03)
== END 2022-01-08 12:29 | disposition home or self-care (01) ==
LOC: ER 08:41
PROVIDERS: Emergency Medicine
DX: N39.0 Urinary tract infection, site not specified (principal); Z88.0 Allergy status to penicillin; Z88.8 Allergy status to other drugs, medicaments and biological substances; Z88.2 Allergy status to sulfonamides; Z88.5 Allergy status to narcotic agent; Z79.899 Other long term (current) drug therapy; K21.9 Gastro-esophageal reflux disease without esophagitis
CPT/HCPCS: 0241U; 36415; 71045; 80053; 81001; 84484; 85025; 87077; 87086; 87186; 93005; 93010; 99284-25; A9270

== ENCOUNTER 2023-02-13 13:29 | Emergency (ER) | payer OTHER ==
[~2023-02-13] VITALS: Ht 160 cm; Wt 56.7 kg
[~2023-02-13 13:29] MED LIST changes: +GABA100 PO
== END 2023-02-13 19:21 | disposition home or self-care (01) ==
LOC: ER 13:29
DX: S52.571A Other intraarticular fracture of lower end of right radius, initial encounter for closed fracture (principal); W01.198A Fall on same level from slipping, tripping and stumbling with subsequent striking against other object, initial encounter; Y92.22 Religious institution as the place of occurrence of the external cause; Z88.0 Allergy status to penicillin; Z88.2 Allergy status to sulfonamides; Z88.5 Allergy status to narcotic agent; Z88.1 Allergy status to other antibiotic agents; Z79.899 Other long term (current) drug therapy
CPT/HCPCS: 70486; 73100; 73110; J1885

== ENCOUNTER 2023-02-19 10:47 | Day surgery (SDC) | payer OTHER ==
[~2023-02-19] VITALS: Ht 154.9 cm; Wt 58.5 kg
--- NOTE | 2023-02-19 16:01 | NUR ---
"Spiritual Care | Pt. Request Pt. is being wheeled in from surgery to the recovery room. Once she is settled she welcomed my visit. Pt. is pleasant. Facilitated a life review and shared about things that we had in common. Pt. displays evidence of being engaged and aware of her condition and her recovery. Prayed with Pt. Pt. verbalized gratitude for the spiritual care visit."
== END 2023-02-19 22:54 | disposition home or self-care (01) ==
LOC: ORSCMMR 10:47
PROVIDERS: Orthopaedic Surgery
PROC: 0PSH04Z Reposition Right Radius with Internal Fixation Device, Open Approach (ICD-10-PCS; principal; 2023-02-19 12:30)
DX: S52.561A Barton's fracture of right radius, initial encounter for closed fracture (principal); K21.9 Gastro-esophageal reflux disease without esophagitis; Z79.899 Other long term (current) drug therapy
CPT/HCPCS: A9270; C1713; J0690; J1100; J2250; J2405; J2704; J2765; J3010; J7120

== ENCOUNTER → 2023-10-05 | Outpatient (CLI) | payer OTHER ==
[2023-10-06 14:58] LABS: Adenovirus F 40/41 Not Detected (NOT DETECT); Astrovirus Not Detected (NOT DETECT); Campylobacter Sp Not Detected (NOT DETECT); Cryptosporidium Not Detected (NOT DETECT); Cyclospora Cayetanensis Not Detected (NOT DETECT); E. Coli O157 Not Detected (NOT DETECT); Entamoeba Histolytica Not Detected (NOT DETECT); Enteroaggregative E. coli-EAEC Not Detected (NOT DETECT); Enteropathogenic E. coli-EPEC Not Detected (NOT DETECT); Enterotoxigenic E. coli-ETEC Not Detected (NOT DETECT); Giardia Lamblia Not Detected (NOT DETECT); Norovirus GI/GII Not Detected (NOT DETECT); Plesiomonas Shigelloides Not Detected (NOT DETECT); Rotavirus A Not Detected (NOT DETECT); Salmonella Sp Not Detected (NOT DETECT); Sapovirus Not Detected (NOT DETECT); Shiga Toxin-prod E. coli-STEC Not Detected (NOT DETECT); Shigella/Enteroin E. coli-EIEC Not Detected (NOT DETECT); Vibrio Cholerae Not Detected (NOT DETECT); Vibrio Sp Not Detected (NOT DETECT); Yersinia Enterocolitica Not Detected (NOT DETECT)
== END ==
LOC: LAB SHORT 01:00 → LAB 01:00
PROVIDERS: Family Medicine
DX: R19.7 Diarrhea, unspecified (principal)
CPT/HCPCS: 87507

== ENCOUNTER 2023-10-18 16:21 | Emergency (ER) | payer OTHER ==
[~2023-10-18] VITALS: Ht 162.6 cm; Wt 59.0 kg
[2023-10-18 16:42] VITALS: BP 189/73
[2023-10-18 17:35] LABS: BASOPHILS ABSOLUTE AUTO 0.03 K/mm3 (0.00-0.23); BASOPHILS PERCENT AUTO 1 % (0-2); EOSINOPHILS ABSOLUTE AUTO 0.04 K/mm3 (0.00-0.68); EOSINOPHILS PERCENT AUTO 1 % (0-6); Hematocrit 40.3 % (33.0-51.0); Hemoglobin 12.8 g/dL (11.5-16.0); IMMATURE GRAN ABSOLUTE AUTO 0.02 K/mm3 (0.00-0.10); IMMATURE GRAN PERCENT AUTO 0 % (0-1); LYMPHOCYTES ABSOLUTE AUTO 1.83 K/mm3 (0.84-5.20); LYMPHOCYTES PERCENT AUTO 39 % (21-46); MONOCYTES ABSOLUTE AUTO 0.51 K/mm3 (0.16-1.47); MONOCYTES PERCENT AUTO 11 % (4-13); Mean Corpuscular HGB 28.9 pg (26.0-34.0); Mean Corpuscular HGB Conc 31.8 g/dL (31.5-36.5); Mean Corpuscular Volume 91 fL (80-100); Mean Platelet Volume 8.9 fL (9.1-12.4); NEUTROPHILS PERCENT AUTO 49 % (41-73); Platelet Count 172 K/mm3 (150-400); RDW Standard Deviation 46.6 fL (35.1-46.3); Red Blood Cell Count 4.43 M/mm3 (3.80-5.20); White Blood Cell Count 4.73 K/mm3 (4.00-11.30)
[2023-10-18 18:05] LABS: Source, Urine Clean Catch
[2023-10-18 18:08] LABS: Albumin, Blood 3.7 g/dL (3.4-5.0); Albumin/Globulin Ratio 1.1 (0.8-1.8); Bilirubin, Total 0.4 mg/dL (0.1-1.0); Bun/Creatinine Ratio 13.4 (12.0-20.0); Creatinine, Blood 1.12 mg/dL (0.40-1.00); Globulin, Blood 3.3 g/dL (2.2-4.0); Potassium, Blood 4.1 mmol/L (3.5-5.5)
[2023-10-18 18:26] LABS: Appearance, Urine Clear (Clear); Bilirubin, Urine Neg (Neg); Blood, Urine Neg (Neg); Color, Urine Yellow (P-Yellow); Glucose Qualitative, Urine Neg (Neg); Ketones, Urine Neg (Neg); Leukocyte Esterase, Urine 1+ (Neg); Nitrite, Urine Neg (Neg); Protein, Urine Neg (Neg); Specific Gravity, Urine 1.005 (1.003-1.022); Urobilinogen, Urine NORM (Normal)
[2023-10-18 19:28] LABS: Red Blood Cells, Urine 0-2 /hpf (0-2); Squamous Epithelial Cells Rare /hpf (Few)
[2023-10-18 19:29] LABS: Amorphous Light (0-Heavy); Bacteria Mod /hpf
== END 2023-10-18 22:00 | disposition home or self-care (01) ==
LOC: ER 16:21
PROVIDERS: Student in an Organized Health Care Education/Training Program
DX: R41.0 Disorientation, unspecified (principal); Z88.0 Allergy status to penicillin; Z88.2 Allergy status to sulfonamides; Z88.5 Allergy status to narcotic agent; Z88.8 Allergy status to other drugs, medicaments and biological substances
CPT/HCPCS: 80053; 81001; 85025; 93005; 93010; 99284-25

== ENCOUNTER → 2023-10-25 | Outpatient (CLI) | payer OTHER | END | disposition home or self-care (01) | LOC: LAB 17:48 → LAB SHORT 17:48 | DX: F44.89 Other dissociative and conversion disorders (principal); R35.0 Frequency of micturition | CPT/HCPCS: 87086 ==